=== PATIENT | male | born 2000 | race Hispanic/Latino ===

== ENCOUNTER 2020-05-27 13:30 | Outpatient (RCR) | payer OTHER, SELFPAY ==
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
--- NOTE | 2020-04-27 09:37 | PCPTNOTE ---
Patient did not show up for scheduled appointment this date. Called and informed patient of upcoming schedule.
--- NOTE | 2020-05-06 14:03 | PCPTNOTE ---
Patient did not show up for scheduled appointment this date. PT called patient, left a message with next appt. time.
--- NOTE | 2020-05-11 11:47 | PCPTNOTE ---
Patient did not show up for scheduled appointment this date. Called and spoke to Miller, he stated that he got busy with work and forgot about his appointment.
--- NOTE | 2020-05-20 14:02 | PCPTNOTE ---
Patient did not show up for scheduled appointment this date. Called Pt, left message with Pt's mom to give us a call back regarding appointment.
--- NOTE | 2020-05-25 14:03 | PCPTNOTE ---
Patient did not show up for scheduled appointment this date.
--- NOTE | 2020-05-27 15:27 | PCPTNOTE ---
Patient did not show up for scheduled appointment this date. Called and had to leave a message.
--- NOTE | 2020-06-01 10:03 | PTOPEVAL ---
PHYSICAL THERAPY DISCHARGE SUMMARY Attending Provider: Dr. Joann You Patient:Miller Sultana Date of :2000 Patient has not returned for any further treatments since 05/18/2020, therefore he will be discharged at this time. Patient?s initial visit was on 04/22/2020 09:00 and he had a total of 5 visits. The goals have been partially met. Thank you for referring this patient to [facility]. Please review, sign, date and return this discharge summary JEOVANY. I have been updated about the patient's current status and I agree with discharge from the above service at this time. Referring Physician Date
--- NOTE | 2020-06-01 13:52 | PCPTNOTE ---
Patient did not show up for scheduled appointment this date.
== END 2020-06-02 10:05 | disposition home or self-care (01) ==
LOC: ANHPT 13:30
DX: S52.92XD Unspecified fracture of left forearm, subsequent encounter for closed fracture with routine healing (principal); S52.202D Unspecified fracture of shaft of left ulna, subsequent encounter for closed fracture with routine healing; S32.811D Multiple fractures of pelvis with unstable disruption of pelvic ring, subsequent encounter for fracture with routine healing
CPT/HCPCS: 97014; 97110; 97140; 97161; G0283

== ENCOUNTER 2020-06-05 19:10 | Emergency (ER) | payer OTHER, SELFPAY ==
[2020-06-05 19:22] VITALS: BP 114/64; PULSE 63; RESP 18; TEMP 37.3; O2SAT 100
--- NOTE | 2020-06-05 19:32 | ED.MALEGU ---
HPI - Male Genitourinary General Chief complaint: Urogenital-Male Stated complaint: STD testing History of Present Illness HPI Narrative: This is a 19-year-old male comes in complaining of burning with urination states that is been going on for approximately 1 week. Patient states that he is sexually active and his girlfriend's been complaining of some burning but drinking plenty of fluids and the burning has went away. Patient states that he is not for sure if he has STD or not Related Data Home Medications Medication Instructions Recorded Confirmed No Home Medications 06/05/20 06/05/20 Allergies Allergy/AdvReac Type Severity Reaction Status Date / Time No Known Allergies Allergy Verified 07/19/19 11:18 Review of Systems Review of Systems: Narrative: CONSTITUTIONAL: Denies fever, chills, or sweats. EYES: Denies visual changes, redness, or discharge. ENT: Denies rhinorrhea, congestion, sore throat, or otalgia. CARDIOVASCULAR:Denies chest pain, palpitations, or edema. RESPIRATORY: Denies cough or dyspnea. GASTROINTESTINAL: Denies abdominal pain, nausea, vomiting, or diarrhea. GENITOURINARY: Reports dysuria or hematuria. SKIN:[Denies rash or itching. MUSCULOSKELETAL:Denies back pain, joint pain, or myalgia. NEUROLOGIC: Denies headache, numbness, or weakness. PSYCHIATRIC:Denies anxiety or depression PMFSH Social History Social History Gender identity (if verbalized by the patient): Male Comments At time as signature, I have reviewed and agree with nursing past medical, social, surgical and family history. Please see nursing chart for further information. There is no relevant family history pertinent to the presenting complaint. Exam Narrative: Exam Narrative: GENERAL:Well-appearing, well-nourished, and in no acute distress. HEAD:Normocephalic, atraumatic. EYES: PERRLA and EOMI. ENT: Nares clear, no rhinorrhea or epistaxis. Mucous membranes moist. NECK: Supple. CHEST: Clear to auscultation. No respiratory distress. HEART: Regular rate and rhythm. No murmur heard. Normal peripheral pulses. ABDOMEN: Soft, nontender, nondistended, normal active bowel sounds. Burning with urination and frequency EXTREMITIES: Normal range of motion. No edema. SKIN: Warm, dry, no rash. NEURO: No focal deficits. Alert and oriented x3. Course Vital Signs Vital signs: Vital Signs Temperature 99.1 F 06/05/20 19:22 Pulse Rate 63 06/05/20 19:22 Respiratory Rate 18 06/05/20 19:22 Blood Pressure 114/64 06/05/20 19:22 Pulse Oximetry 100 06/05/20 19:22 Temperature 99.1 F 06/05/20 19:22 Pulse Rate 63 06/05/20 19:22 Respiratory Rate 18 06/05/20 19:22 Blood Pressure 114/64 06/05/20 19:22 Pulse Oximetry 100 06/05/20 19:22 MDM - Male Genitourinary MDM Narrative Medical decision making narrative: Gonorrhea, chlamydia, trichomonas Differential Diagnosis Differential diagnosis: Likely urinary tract infection and urethritis Lab Data Labs: Urine Glucose Negative Reference Range: Negative Urine Bilirubin Negative Reference Range: Negative Urine Ketone Negative Reference Range: Negative Urine Specific [place] 1.025 Reference Range:1.001-1.035 Urine Blood Negative Reference Range: Negative * * Urine pH 7.5 Reference Range: 5.0-9.0 Urine Protein Negative Reference Range: Negative Urine Urobilinogen 1.0 Reference Range: 0.2-1
[2020-06-05] MEDS: cefTRIAXone 250 MG VIAL IM (19:53)
[2020-06-05] MEDS: AZITHROMYCIN 250 MG TABLET 1000 MG PO (19:53)
== END 2020-06-05 20:13 | disposition home or self-care (01) ==
PROVIDERS: Emergency Provider Nurse Practitioner Family
DX: Z20.2 Contact with and (suspected) exposure to infections with a predominantly sexual mode of transmission (principal); N39.0 Urinary tract infection, site not specified
CPT/HCPCS: 81003; 87086; 87088; 87491; 87591; 87661; 96372; 99213; A9270; G0463; J0696

== ENCOUNTER 2020-10-20 17:26 | Emergency (ER) | payer OTHER, SELFPAY ==
--- NOTE | 2020-10-20 17:35 | ED.DENTAL ---
HPI - Dental/Oral General Chief complaint: Dental/Oral Stated complaint: Tooth Pain Time Seen by Provider: 10/20/20 17:35 Source: patient and RN notes reviewed History of Present Illness HPI Narrative: Patient is a 20-year-old male who presents the urgent care with complaints of dental pain. Patient states that he has a cavity on the left lower side of his mouth which has been causing him pain for the last 2 weeks. Patient has been using [id number] medication without much relief. Patient denies of any fever, chills, nausea, vomiting. No other acute complaints. No acute distress noted. Patient aware of the plan of care. Some parts of this dictation were generated by voice recognition software and may contain typographical and/or grammatical inaccuracies. Related Data Allergies Allergy/AdvReac Type Severity Reaction Status Date / Time No Known Allergies Allergy Verified 10/20/20 17:30 Review of Systems Review of Systems: Narrative: CONSTITUTIONAL: Denies fever, chills, or sweats. EYES: Denies visual changes, redness, or discharge. ENT: Denies rhinorrhea, congestion, sore throat, or otalgia. Reports of left lower dental pain CARDIOVASCULAR: Denies chest pain, palpitations, or edema. RESPIRATORY: Denies cough or dyspnea. GASTROINTESTINAL: Denies abdominal pain, nausea, vomiting, or diarrhea. GENITOURINARY: Denies dysuria or hematuria. SKIN: Denies rash or itching. MUSCULOSKELETAL: Denies back pain, joint pain, or myalgia. NEUROLOGIC: Denies headache, numbness, or weakness. All other systems reviewed are negative, except as documented in HPI. [facility] Social History Social History Gender identity (if verbalized by the patient): Male Comments At the time of my signature, I reviewed and agree with the nursing past medical, surgical, social, and family history. There is no relevant family history pertinent to the patient complaint. Exam Narrative: Exam Narrative: GENERAL: This is a well-nourished, well-developed patient, in no apparent distress. HEAD: normocephalic, atraumatic. EYES: PERRL. Sclera clear/white. Vision is grossly intact. EARS: External ears normal NOSE: External nose normal with no obvious nasal discharge, nares without redness, no rhinorrhea. THROAT: Mucous membranes moist, posterior pharynx clear. NECK: Neck supple, non-tender without lymphadenopathy DENTAL: Notable carious lesion in the lower left first molar, tooth #19 with surrounding mild erythema and edema SKIN: warm, intact with no suspicious lesions or rash, good texture and turgor. NEURO: awake, alert, and oriented to person, place and time. There were no obvious focal neurologic abnormalities. EXTREMITIES: No clubbing, cyanosis, or edema. Course Vital Signs Vital signs: Vital Signs Temperature 97.4 F L 10/20/20 17:40 Pulse Rate 65 10/20/20 17:40 Respiratory Rate 16 10/20/20 17:40 Blood Pressure 122/63 10/20/20 17:40 Pulse Oximetry 100 10/20/20 17:40 Temperature 97.4 F L 10/20/20 17:40 Pulse Rate 65 10/20/20 17:40 Respiratory Rate 16 10/20/20 17:40 Blood Pressure 122/63 10/20/20 17:40 Pulse Oximetry 100 10/20/20 17:40 Reviewed MDM - Dental/Oral MDM Narrative Medical decision making narrative: Advised the patient to complete oral antibiotic therapy as prescribed. Use ibuprofen as needed for pain. May use ice as needed for comfort. Be sure to eat and drink with the medication. Continue to look for a dentist and follow-up. You must fix the underlying issue or the infection will return. Use [id number] Prevention mouthwash twice a day. Follow-up with your PCP within 2 to 5 days or for worsening symptoms or failure to improve. Differential Diagnosis Differential diagnosis: Likely gingival abscess, dental caries, toothache, dental abscess and fracture of tooth Critical Care Time Critical Care Time Critical Care Time: No Discharge Plan Discharge Clinical Impression: Dental caries Patient
[2020-10-20 17:40] VITALS: BP 122/63; PULSE 65; RESP 16; TEMP 36.3; O2SAT 100
== END 2020-10-20 17:53 | disposition home or self-care (01) ==
PROVIDERS: Emergency Provider Nurse Practitioner Family
DX: K02.9 Dental caries, unspecified (principal)
CPT/HCPCS: 99213; G0463

== ENCOUNTER 2021-05-24 11:42 | Emergency (ER) | payer OTHER, SELFPAY ==
--- NOTE | ~2021-05-24 | XR_ITS ---
EXAMINATION: [id number] INDICATION: Left-sided chest pain TECHNIQUE: A frontal view of the chest and 3 views of the left ribs were obtained. COMPARISON: None. FINDINGS: The lungs are free of acute opacities. There is no pleural effusion or pneumothorax. The ca rdiomediastinal silhouette is normal. The visualized bones and soft tissues are unremarkable. No dis placed rib fracture is identified. IMPRESSION: 1. No acute cardiopulmonary abnormality or evidence of displaced rib fracture. Reviewed, dictated and finalized at location B.
[2021-05-24 12:00] VITALS: BP 109/62; PULSE 55; RESP 16; TEMP 36.2; O2SAT 100
--- NOTE | 2021-05-24 13:32 | ED.GENADULT ---
HPI - General Adult General Chief complaint: Unspecified Stated complaint: Side Pain History of Present Illness HPI narrative: This is a 20-year-old comes in complaining of left-sided abdominal pain closer to his ribs denies having any injury and/or pain. Patient states is been going on for approximately 2 days Related Data Allergies Allergy/AdvReac Type Severity Reaction Status Date / Time No Known Allergies Allergy Verified 05/24/21 12:51 Review of Systems Review of Systems: Left-sided rib pain All other symptoms are negative except for written above PMFSH Social History Social History Gender identity (if verbalized by the patient): Male Comments At time as signature, I have reviewed and agree with nursing past medical, social, surgical and family history. Please see nursing chart for further information. There is no relevant family history pertinent to the presenting complaint. Exam Narrative: GENERAL:Well-appearing, well-nourished, and in no acute distress. HEAD:Normocephalic, EYES: PERRLA and EOMI. ENT: Nares clear, no rhinorrhea or epistaxis. Mucous membranes moist. NECK: Supple. CHEST: Clear to auscultation. No respiratory distress. Left-sided rib pain no bruising noted painful to palpitation HEART: Regular rate and rhythm. ABDOMEN: Soft, nontender, nondistended, normal active bowel sounds. EXTREMITIES: Normal range of motion. No edema. SKIN: Warm, dry, no rash. NEURO: No focal deficits. Alert and oriented x3. Course Course Emergency Course: X-ray shows no cardiopulmonary abnormality Vital Signs Vital signs: Vital Signs Temperature 97.2 F L 05/24/21 12:00 Pulse Rate 55 L 05/24/21 12:00 Respiratory Rate 16 05/24/21 12:00 Blood Pressure 109/62 05/24/21 12:00 Pulse Oximetry 100 05/24/21 12:00 Temperature 97.2 F L 05/24/21 12:00 Pulse Rate 55 L 05/24/21 12:00 Respiratory Rate 16 05/24/21 12:00 Blood Pressure 109/62 05/24/21 12:00 Pulse Oximetry 100 05/24/21 12:00 Medical Decision Making Vital Signs Vital Signs: Vital Signs Temperature 97.2 F L 05/24/21 12:00 Pulse Rate 55 L 05/24/21 12:00 Respiratory Rate 16 05/24/21 12:00 Blood Pressure 109/62 05/24/21 12:00 Pulse Oximetry 100 05/24/21 12:00 Temperature 97.2 F L 05/24/21 12:00 Pulse Rate 55 L 05/24/21 12:00 Respiratory Rate 16 05/24/21 12:00 Blood Pressure 109/62 05/24/21 12:00 Pulse Oximetry 100 05/24/21 12:00 Lab Data Labs: Urine Glucose Negative Reference Range: Negative Urine Bilirubin Negative Reference Range: Negative Urine Ketone Negative Reference Range: Negative Urine Specific [place] 1.025 Reference Range:1.001-1.035 Urine Blood Negative Reference Range: Negative * * Urine pH 7.0 Reference Range: 5.0-9.0 Urine Protein Negative Reference Range: Negative Urine Urobilinogen 1.0 Reference Range: 0.2-1.0 Urine Nitrate Negative Reference Range: Negative Urine Leukocyte Negative Reference Range: Negative Urine Color Dark,Yellow Reference Range: Yellow Urine Characteristics Clear Discharge Plan Discharge C
== END 2021-05-24 14:45 | disposition home or self-care (01) ==
PROVIDERS: Emergency Provider Nurse Practitioner Family; PCP Registered Nurse
DX: R07.81 Pleurodynia (principal)
CPT/HCPCS: 71101; 81003; 99213; G0463

== ENCOUNTER 2021-07-19 13:13 | Emergency (ER) | payer OTHER, SELFPAY ==
--- NOTE | ~2021-07-19 | XR_ITS ---
EXAMINATION: XR lumbar spine 2-3V DATE: 07/19/2021 15:00 INDICATION: Left lower back pain post fall TECHNIQUE: Anteroposterior and lateral views of the lumbar spine, and cone-down lateral view of the l umbosacral junction were obtained. COMPARISON: None. FINDINGS: 7 degrees lumbar levocurvature. Sagittal alignment is normal. Vertebral body and disc heights are nor mal. No evident fracture. Sacral arches are intact. Bilateral hip and sacroiliac joint spaces are nor mal. Normal bowel gas pattern. Visualized base of the lungs are clear with no pleural effusion. IMPRESSION: 1. 7 degrees lumbar levocurvature. No evident acute osseous abnormality. Reviewed, dictated and finalized at [facility]. [employer]
[2021-07-19 13:48] VITALS: BP 101/57; PULSE 62; RESP 16; TEMP 36.6; O2SAT 100
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
== END 2021-07-19 15:45 | disposition home or self-care (01) ==
PROVIDERS: Emergency Provider Nurse Practitioner
DX: M25.552 Pain in left hip (principal)
CPT/HCPCS: 72100; 99213; G0463

== ENCOUNTER 2022-04-06 18:31 | Emergency (ER) | payer OTHER, SELFPAY ==
[2022-04-06 18:43] VITALS: BP 116/71; PULSE 68; RESP 16; TEMP 36.9; O2SAT 100
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
== END 2022-04-06 19:52 | disposition home or self-care (01) ==
PROVIDERS: Emergency Provider Registered Nurse
DX: R51.9 Headache, unspecified (principal); J32.9 Chronic sinusitis, unspecified; F17.290 Nicotine dependence, other tobacco product, uncomplicated
CPT/HCPCS: 99213; G0463

== ENCOUNTER 2022-05-24 18:45 | Emergency (ER) | payer OTHER, SELFPAY ==
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
[2022-05-24 18:50] VITALS: BP 110/57; PULSE 57; RESP 16; TEMP 36.6; O2SAT 100
== END 2022-05-24 19:17 | disposition home or self-care (01) ==
PROVIDERS: Emergency Provider Nurse Practitioner
DX: R09.82 Postnasal drip (principal); B34.9 Viral infection, unspecified; Z20.822 Contact with and (suspected) exposure to COVID-19; F17.290 Nicotine dependence, other tobacco product, uncomplicated
CPT/HCPCS: 87426; 87804; 99213; C9803; G0463